=== PATIENT | female | born 1945 | race Caucasian/White ===

== ENCOUNTER 2016-07-12 10:56 | Emergency (ER) | payer MEDICARE, BC ==
[2016-07-12 11:33] LABS: BILIRUBIN,URINE NEGATIVE (NEGATIVE)
[2016-07-12 11:38] LABS: UA CHARGE (STRIP ONLY) YES; UR CULTURE IF IND NOT INDICATED
--- NOTE | 2016-07-12 11:44 | ED Physician Documentation ---
History of Present Illness - Stated complaint Stated Complaint: LOWER ABD PAIN - Chief complaint Chief Complaint: Abd Pain - Additonal information Additional information: hx from pt 70 female to ER with general fatigue chills LLQ pain sense of need to have BM but doesnt no blood in stoool exact same sx as prior diverticulitis - usually txed with cipro flagyl - would like same does not think she needs labs CT etc no prior surgery, last colonoscopy 2 yr ago Review of Systems Constitutional: reports: Chills, Fatigue. denies: Fever Cardiac: denies: Chest pain / pressure Respiratory: denies: Dyspnea, Cough GI: reports: Abdominal Pain (LLQ). denies: Hematemesis, Bloody / black stool : denies: Dysuria Immunocompromised: denies: Immunocompromised PD PAST MEDICAL HISTORY - Past Medical History Past Medical History: Yes GI: Diverticulitis - Past Surgical History Past Surgical History: No - Present Medications Home Medications: Ambulatory Orders Medication Instructions Recorded Confirmed Ciprofloxacin HCl [Cipro] 500 mg PO BID #20 tablet 07/12/16 Metronidazole [Flagyl] 500 mg PO BID #20 tablet 07/12/16 - Allergies Allergies/Adverse Reactions: Allergies Allergy/AdvReac Type Severity Reaction Status Date / Time No Known Drug Allergies Allergy Verified 07/12/16 11:01 - Social History Does the pt smoke?: No Smoking Status: Never smoker Does the pt drink ETOH?: No Does the pt have substance abuse?: No - Immunizations Immunizations are current?: Yes PD ED PE NORMAL - Vitals Vital signs reviewed: Yes - Neck Neck: Supple, no meningeal sign - Cardiac Cardiac: RRR - Respiratory Respiratory: No respiratory distress, Clear bilaterally - Abdomen Abdomen: Soft, Other (TTP LLQ s rebound or gaurding, no inguinal hernia) - Derm Derm: Normal color - Neuro Neuro: Alert and oriented X 3, No motor deficit - Psych Psych: Normal mood Results - Vitals Vitals: Vital Signs - 24 hr 07/12/16 10:58 Temperature 36.5 C Heart Rate 81 Respiratory 16 Rate Blood Pressure 146/85 H O2 Saturation 100 Oxygen O2 Source Room air - Labs Labs: Laboratory Tests 07/12/16 11:08 Urine Color YELLOW Urine Clarity CLEAR Urine pH 7.0 Ur Specific [place] 1.010 Urine Protein NEGATIVE Urine Glucose (UA) NEGATIVE Urine Ketones NEGATIVE Urine Occult Blood NEGATIVE Urine Nitrite NEGATIVE Urine Bilirubin NEGATIVE Urine Urobilinogen 0.2 (NORMAL) Ur Leukocyte Esterase NEGATIVE Ur Microscopic Review NOT INDICATED Urine Culture Comments NOT INDICATED PD MEDICAL DECISION MAKING - ED course ED course: same sx as prior divertic - declines labs CT etc - will come back if worse/not better Departure - Departure Disposition: 01 Home, Self Care Clinical Impression: Diverticulitis of gastrointestinal tract Condition: Good Instructions: ED Diverticulitis, Ciprofloxacin tablets, Metronidazole tablets or capsules, ED Diet Clear Liquid Prescriptions: Ciprofloxacin HCl [Cipro] 500 mg PO BID #20 tablet Metronidazole [Flagyl] 500 mg PO BID #20 tablet Comments: Take the antibiotics as prescribed Continue your probiotic Recommend a clear liquid diet for 2 days to rest your bowels. Even with good antibiotics, even if admitted to the hospital, some cases of diverticulitis get worse and perforate or develop and abscess - so if you feel worse please come back and we can do the labs and a CT scan after all Follow up with your PMD about your blood pressure - it was high today
[2016-07-12 11:52] VITALS: BP 131/78
== END 2016-07-12 11:58 | disposition home or self-care (01) ==
LOC: ED 10:56
DX: K57.32 Diverticulitis of large intestine without perforation or abscess without bleeding (principal)
CPT/HCPCS: 80053; 81001; 81003; 83690; 85025; 87086; 99283

== ENCOUNTER 2016-07-20 08:10 | Emergency (ER) | payer MEDICARE, BC | END 2016-07-20 09:14 | disposition home or self-care (01) | DX: K57.32 Diverticulitis of large intestine without perforation or abscess without bleeding (principal) ==

== ENCOUNTER 2017-01-10 15:00 | Emergency (ER) | payer MEDICARE, BC ==
[2017-01-10 15:09] VITALS: BP 127/78
--- NOTE | 2017-01-10 15:38 | ED Physician Documentation ---
PD HPI LOWER EXT INJURY - Stated complaint Stated Complaint: RT TOE INJ - Chief complaint Chief Complaint: Ext Problem - History obtained from History obtained from: Patient - History of Present Illness PD HPI LOW EXT INJURY LOCATION: Right, Toe Type of injury: Blunt / blow (struck door jam with toe and heard snap.) Where injury occurred: Home Timing - onset: Today Timing - details: Abrupt onset, Still present Worsened by: Moving, Palpating Associated symptoms: Other (angled deformity). No: Weakness, Numbness Similar symptoms before: Has not had sx before Recently seen: Not recently seen Review of Systems Skin: denies: Abrasion (s), Laceration (s) Neurologic: denies: Focal weakness, Numbness PD PAST MEDICAL HISTORY - Past Medical History Cardiovascular: None Respiratory: None Neuro: None Endocrine/Autoimmune: None GI: Diverticulitis - Past Surgical History Past Surgical History: No - Present Medications Home Medications: Ambulatory Orders Medication Instructions Recorded Confirmed No Known Home Medications [No 01/10/17 01/10/17 Known Home Medications] - Allergies Allergies/Adverse Reactions: Allergies Allergy/AdvReac Type Severity Reaction Status Date / Time No Known Drug Allergies Allergy Verified 01/10/17 15:09 - Social History Does the pt smoke?: No Smoking Status: Never smoker Does the pt drink ETOH?: No Does the pt have substance abuse?: No - Immunizations Immunizations are current?: Yes PD ED PE NORMAL - Vitals Vital signs reviewed: Yes - General General: Alert and oriented X 3, No acute distress, Well developed/nourished - Derm Derm: Normal color, Warm and dry - Extremities Extremities: Other (right little toe with tenderness and angulation at middle phalanx. No bleeding/cuts. Normal sensation at tip. ) Results - Vitals Vitals: Oxygen O2 Source Room air - Rads (name of study) little toe Radiology: Prelim report reviewed (fracture middle phalanx shaft) PD MEDICAL DECISION MAKING - ED course Complexity details: reviewed results, considered differential, d/w patient Departure - Departure Disposition: 01 Home, Self Care Clinical Impression: Toe fracture, right Qualifiers: Encounter type: initial encounter Toe: lesser toe Fracture type: closed Phalanx : middle Fracture alignment: nondisplaced Qualified Code(s): S92.524A - Nondisplaced fracture of middle phalanx of right lesser toe(s), initial encounter for closed fracture Condition: Stable Record reviewed to determine appropriate education?: Yes Instructions: ED Fx Toe Closed Follow-Up: PATRICIA JON MD [Primary Care Provider] - Comments: Tylenol every 4 hours as needed for pain. Cleanse the abrasion once or twice daily with soap and water apply ointment. Band-Aid to protect the skin of the toe. Murali tape the toe to keep it more stable and straight. Firm soled shoe to reduce flexion of the toe. This should heal slowly over 3-4 weeks. Discharge Date/Time: 01/10/17 16:16
--- NOTE | 2017-01-10 16:02 | XRAY Preliminary Report ---
Exam: XR TOE(S) RT IMPRESSION: Angulated fracture of the fifth proximal phalanx. [facility] SITE ID: [id number]
--- NOTE | 2017-01-10 16:04 | XRAY Report ---
EXAM: RIGHT FIFTH TOE RADIOGRAPHY EXAM DATE: 01/10/2017 03:30 PM. CLINICAL HISTORY: pop-going in wrong direction . Fifth toe pain after stubbing the toe one day ago. COMPARISON: None. TECHNIQUE: 3 views. FINDINGS: Bones: Oblique fracture the distal aspect of the fifth proximal phalanx with moderate lateral angulat ion and impaction and mild dorsal angulation. No definite intra-articular involvement. Joints: No subluxation. 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 Soft Tissues: Normal. No soft tissue swelling. IMPRESSION: Angulated fracture of the fifth proximal phalanx. [facility] Referring Provider Line: [phone] SITE ID: [id number]
== END 2017-01-10 16:16 | disposition home or self-care (01) ==
LOC: ED 15:00
DX: S92.524A Nondisplaced fracture of middle phalanx of right lesser toe(s), initial encounter for closed fracture (principal); W22.09XA Striking against other stationary object, initial encounter; Y92.009 Unspecified place in unspecified non-institutional (private) residence as the place of occurrence of the external cause
CPT/HCPCS: 73660; 99283